=== PATIENT | female | born 1995 | race Hispanic/Latino ===

== ENCOUNTER 2018-10-06 23:42 | Emergency (ER) | payer MEDICAID, OTHER ==
[2018-10-07] MEDS ORDERED: METHYLPREDNISOLONE SOD SUCC 40MG/ML 1ML ONE (00:01)
[2018-10-07] MEDS ORDERED: IPRATROPIUM/ALBUTEROL SULFATE 3 ML SOLUTION IH ONE (00:06)
[2018-10-07] MEDS ORDERED: GUAIFENESIN SUGAR-FREE 100 MG/5 ML UDCUP ONE (00:20)
[2018-10-07] MEDS ORDERED: BENZONATATE 100 MG CAPSULE PO ONE (00:20)
[2018-10-07] MEDS ORDERED: IBUPROFEN 200 MG TAB ONE (00:21)
== END 2018-10-07 00:35 | disposition home or self-care (01) ==
LOC: EDH 23:42
DX: J20.9 Acute bronchitis, unspecified (principal)
CPT/HCPCS: 71045; 94640; 96372; 99284; J2920